=== PATIENT | male | born 1970 | race Two or more races ===

== ENCOUNTER 2020-12-19 17:06 | Emergency (ER) | payer MEDICAID ==
[~2020-12-19] VITALS: Ht 170.2 cm; Wt 95.0 kg
[2020-12-19 18:42] LABS: BASOPHILS % 1.1 % (0.0-2.0); EOSINOPHILS % 4.5 % (0.0-5.0); HEMATOCRIT. 41.6 % (42.0-52.0); HEMOGLOBIN. 14.2 g/dL (14.0-18.0); LYMPHOCYTES % 17.2 % (20.0-50.0); MEAN CORPUSCULAR HEMOGLOBIN 27.9 pg (28.0-32.0); MEAN CORPUSCULAR VOLUME 81.7 fL (80.0-94.0); MEAN PLATELET VOLUME 8.2 fl (7.4-10.4); MONOCYTES % 10.1 % (2.0-8.0); NEUTROPHILS % 67.1 % (40.0-76.0); PLATELET 242 x1000/uL (130-400); RED BLOOD CELL COUNT 5.09 mill/uL (4.7-6.1); RED CELL DISTRIBUTION WIDTH 13.8 % (11.6-14.6)
[2020-12-19 18:47] LABS: CHLORIDE 108 mEq/L (98-107)
[2020-12-19 18:48] LABS: PROTHROMBIN TIME 10.3 sec (9.6-11.0)
[2020-12-19 21:00] VITALS: BP 102/67
== END 2020-12-19 21:56 | disposition home or self-care (01) ==
LOC: EDBD 17:06 → ER 17:06
DX: T40.2X1A Poisoning by other opioids, accidental (unintentional), initial encounter (principal); Y92.89 Other specified places as the place of occurrence of the external cause
CPT/HCPCS: 36415; 80053; 85025; 99283